=== PATIENT | female | born 1990 | race Hispanic/Latino ===

== ENCOUNTER 2017-10-28 21:39 | Emergency (ER) | payer SELFPAY ==
[2017-10-28] MEDS ORDERED: Metoclopramide HCl 10 MG/2 ML VIAL ONE (22:32)
[2017-10-28] MEDS ORDERED: diphenhydrAMINE 50 MG/ML VIAL ONE (22:32)
[2017-10-28] MEDS ORDERED: Ketorolac Tromethamine 30 MG/ML VIAL ONE (23:41)
--- NOTE | 2017-10-28 23:51 | CT ---
NONCONTRAST CT OF THE BRAIN: Indication: History of headache and vomiting. Comparison: 04-13-16 FINDINGS: No acute infarct, hemorrhage or hydrocephalus is present. Septum pellucidum and third ventricle are m idline. There is slight crowding of the cerebellar tonsils at the level of the foramen magnum. Mastoi d air cells are clear. Skull is intact. IMPRESSION: 1. No definite intracranial abnormality. 2. Slight crowding seen at the foramen magnum, possibly related to low lying tonsils. No hydrocephalu s is evident. Chiari I malformation cannot be entirely excluded. Follow up MRI of the brain may be he lpful for additional characterization. This is similar to the comparison exam of 2016. 3. Visualized mastoid air cells are clear. POS: [facility]
== END 2017-10-29 00:05 | disposition home or self-care (01) ==
LOC: ERS 21:39
DX: R51 Headache (principal)
CPT/HCPCS: 70450; 87804; 96365; 96375; J1200; J1885; J2765

== ENCOUNTER 2018-03-20 22:17 | Emergency (ER) | payer SELFPAY ==
[2018-03-20] MEDS ORDERED: Morphine 4 MG/ML VIAL ONE (22:52)
[2018-03-20] MEDS ORDERED: Ondansetron ODT 8 MG TAB ONE ×2 (22:52→22:54)
[2018-03-20 22:57] LABS: #Basophils 0.1 thou/uL (0.0-0.2); #Lymphocytes 1.1 thou/uL (1.20-3.40); #Monocytes 0.3 thou/uL (0.11-0.59); #Neutrophils 4.5 thou/uL (1.40-6.50); %Eosinophils 0.2 % (0.0-10.0); %Lymphocytes 17.6 % (21.0-51.0); %Monocytes 5.6 % (0.0-10.0); %Neutrophils 75.7 % (42.0-75.0); Hemoglobin 15.1 g/dL (12.0-16.0); Mean Corpuscular Volume 85.4 fl (81.0-99.0); Mean Platelet Volume 6.2 fL (7.4-10.4); Platelet Count 319 thou/uL (130-400); RBC Distribution Width 10.9 % (11.5-14.5); Red Blood Cell (RBC) Count 5.19 mill/uL (4.20-5.40)
[2018-03-20 22:59] LABS: Bilirubin Negative (Negative); Blood, Urine Negative (Negative); Clarity CLOUDY (Clear); Glucose, Urine (Dipstick) Negative (Negative); Leukocyte Small (Negative); Nitrite Negative (Negative); Protein, Urine (Dipstick) Negative (Neg-Trace); Urobilinogen 0.2 mg/dL (0.2-1.0); pH, Urine 5.5 (5.0-9.0)
[2018-03-20 23:01] LABS: Bacteria/HPF Rare-Few HPF (None Seen); Hyaline Casts/LPF 4-6 HYALINE CAST LPF (0-3 Hyaline); Pathc Cast-AUWi Flag 0.87 (0-2.49); Pregnancy Test - Urine (BHCG) Negative (Negative); Pregu Control Background? CLEAR/WHITE (CLR/WHITE); Pregu Control Bar Appear? YES (CONTROL BAR); RBC/HPF 0-3 HPF (0-3); WBC/HPF 21-50 HPF (0-3)
[2018-03-20 23:37] LABS: ALT (SGPT) 41 U/L (8-55); AST (SGOT) 30 U/L (5-34); Albumin 4.5 g/dL (3.5-5.0); Alkaline Phosphatase 71 U/L (40-150); Anion Gap 14 mmol/L (10-20); BUN (Urea Nitrogen) 9 mg/dL (7.0-18.7); Bilirubin, Total 0.5 mg/dL (0.2-1.2); Calc. Creatinine Clearance 0 mL/min (70-130); Calcium 9.2 mg/dL (7.8-10.44); Carbon Dioxide 24 mmol/L (22-29); Chloride 103 mmol/L (98-107); Estimated GFR-MDRD 90; Globulin 3.1 g/dL (2.4-3.5); Glucose 106 mg/dL (70-105); Lipase 21 U/L (8-78); Potassium 3.3 mmol/L (3.5-5.1); Protein, Total 7.6 g/dL (6.0-8.3); Sodium 138 mmol/L (136-145)
[2018-03-20] MEDS ORDERED: cefTRIAXone\\ROCEPHIN 1 GM VIAL ONE (23:58)
[2018-03-21] MEDS ORDERED: Albuterol Sulfate 2.5 mg/3 ml Neb ONE (00:43)
[2018-03-21] MEDS ORDERED: Acetaminophen 500 MG TAB ONE (01:38)
--- NOTE | 2018-03-21 07:39 | RAD ---
CHEST 1 VIEW: HISTORY: Chest pain. COMPARISON: Chest radiograph 04/17/17. FINDINGS: The lungs are clear. No pneumothorax or effusion. Cardiac silhouette and mediastinal contours withi n normal limits. IMPRESSION: No acute intrathoracic abnormality. POS: [facility]
== END 2018-03-21 02:03 | disposition home or self-care (01) ==
LOC: ERS 22:17
DX: R10.13 Epigastric pain (principal); R10.11 Right upper quadrant pain; R11.2 Nausea with vomiting, unspecified; R06.2 Wheezing; N39.0 Urinary tract infection, site not specified
CPT/HCPCS: 71045; 80053; 81003; 81015; 81025; 83690; 85025; 87086; 96361; 96374; 96375; J0696; J2270; J7611; J7620

== ENCOUNTER 2020-06-20 21:29 | Emergency (ER) | payer SELFPAY ==
[~2020-06-20 21:29] MED LIST: Iopamidol-370 76% 500 ML 1 ML ONE
[2020-06-20] MEDS ORDERED: HYDROcodone/Acetaminophen 10/325 mg Tablet ONE (22:01)
--- NOTE | 2020-06-20 22:40 | RAD ---
EXAM: 3 views of the left hand COMPARISON: None HISTORY: Hand pain and swelling yesterday FINDINGS: 3 views of the hand shows no evidence of acute fracture or dislocation. No degenerative lee nges are seen. Moderate dorsal soft tissue swelling is present. IMPRESSION: No evidence of acute osseous abnormality.
[2020-06-20 23:00] LABS: #Basophils 0.1 thou/uL (0.0-0.2); #Eosinphils 0.2 thou/uL (0.0-0.7); #Lymphocytes 3.4 thou/uL (1.20-3.40); #Monocytes 0.7 thou/uL (0.11-0.59); #Neutrophils 3.8 thou/uL (1.40-6.50); %Basophils 1.5 % (0.0-1.0); %Eosinophils 2.9 % (0.0-10.0); %Lymphocytes 41.3 % (21.0-51.0); %Monocytes 8.1 % (0.0-10.0); %Neutrophils 46.2 % (42.0-75.0); Hemoglobin 11.4 g/dL (12.0-16.0); Mean Corpuscular HGB CONC 33.6 g/dL (32.0-36.0); Mean Corpuscular Hemoglobin 29.2 pg (27.0-31.0); Mean Corpuscular Volume 86.9 fL (78.0-98.0); Mean Platelet Volume 6.6 fL (7.4-10.4); Platelet Count 451 thou/uL (130-400); RBC Distribution Width 10.8 % (11.5-14.5); Red Blood Cell (RBC) Count 3.91 mill/uL (4.20-5.40); White Blood Cell (WBC) Count 8.3 thou/uL (4.8-10.8)
[2020-06-20 23:22] LABS: ALT (SGPT) 10 U/L (8-55); AST (SGOT) 13 U/L (5-34); Alkaline Phosphatase 64 U/L (40-110); Anion Gap 11 mmol/L (10-20); BUN (Urea Nitrogen) 15 mg/dL (7.0-18.7); Bilirubin, Total 0.2 mg/dL (0.2-1.2); Calc. Creatinine Clearance 0 mL/min (70-130); Calcium 8.8 mg/dL (7.8-10.44); Carbon Dioxide 26 mmol/L (22-29); Chloride 107 mmol/L (98-107); Estimated GFR-MDRD 86; Globulin 2.5 g/dL (2.4-3.5); Glucose 107 mg/dL (70-105); Potassium 3.5 mmol/L (3.5-5.1); Protein, Total 6.5 g/dL (6.0-8.3); Sodium 140 mmol/L (136-145)
[2020-06-20 23:24] LABS: BHCG - Serum Negative (NEGATIVE); Pregs Control Background? CLEAR/WHITE (CLR/WHITE); Pregs Control Bar Appear? YES (CONTROL BAR)
--- NOTE | 2020-06-20 23:54 | CT ---
EXAM: CT left hand with contrast HISTORY: Left hand pain and swelling that began yesterday. Evaluate for abscess COMPARISON: None TECHNIQUE: Multiple contiguous axial images were obtained and a CT of the left hand with contrast. Sa gittal and coronal reformats were performed. FINDINGS: Mild diffuse soft tissue swelling is seen. There may be a joint effusion involving the metacarpophal angeal joint of the middle finger. The flexor and extensor tendons are normal in appearance. No focal fluid collection is seen to suggest an abscess. No obvious osseous erosions are identified. No fracture or dislocation are seen. IMPRESSION: There appears to be an effusion of the metacarpophalangeal joint of the middle finger wit hout abscess formation at this time.
== END 2020-06-21 00:22 | disposition home or self-care (01) ==
LOC: ERS 21:29
DX: M79.89 Other specified soft tissue disorders (principal); M79.642 Pain in left hand
CPT/HCPCS: 36415; 80053; 84550; 84703; 85025; 85652; 86140; Q9967

== ENCOUNTER 2020-12-18 00:20 | Emergency (ER) | payer SELFPAY ==
--- NOTE | 2020-12-18 08:34 | RAD ---
XR Chest 1 View Portable History: Chest pain Comparison: Radiograph February 2018 Findings: Lungs are clear. No pneumothorax or effusion. Cardiac silhouette and mediastinal contours a re within normal limits. Impression: No acute intrathoracic abnormality
== END 2020-12-18 01:51 | disposition left against medical advice (07) ==
LOC: ERS 00:20
DX: Z53.21 Procedure and treatment not carried out due to patient leaving prior to being seen by health care provider (principal)
CPT/HCPCS: 71045; 93005

== ENCOUNTER 2021-02-21 00:45 | Emergency (ER) | payer SELFPAY | END 2021-02-21 01:19 | disposition home or self-care (01) | LOC: ERS 00:45 | DX: F43.0 Acute stress reaction (principal) | CPT/HCPCS: 99281 ==

== ENCOUNTER 2021-06-02 06:44 | Emergency (ER) | payer SELFPAY ==
[2021-06-02] MEDS ORDERED: Acetaminophen 500 MG TAB ONE (07:01)
[2021-06-02 07:13] LABS: Hemoglobin 12.4 g/dL (12.0-16.0); Mean Corpuscular HGB CONC 32.7 g/dL (32.0-36.0); Mean Corpuscular Hemoglobin 26.5 pg (27.0-31.0); Mean Corpuscular Volume 80.8 fL (78.0-98.0); Mean Platelet Volume 6.3 fL (7.4-10.4); Platelet Count 438 thou/uL (130-400); RBC Distribution Width 13.1 % (11.5-14.5); Red Blood Cell (RBC) Count 4.68 mill/uL (4.20-5.40); White Blood Cell (WBC) Count 8.7 thou/uL (4.8-10.8)
[2021-06-02 07:35] LABS: Bilirubin Negative (Negative); Blood, Urine Negative (Negative); Calcium Oxalate Crystals Rare HPF (None Seen); Clarity Clear (Clear); Glucose, Urine (Dipstick) Normal (Negative); Ketone, Urine Negative (Negative); Leukocyte 250 Leu/uL (Negative); Nitrite Negative (Negative); Protein, Urine (Dipstick) Negative (Neg-Trace); RBC/HPF 0-3 HPF (0-3); Urobilinogen Normal mg/dL (Less than 2); pH, Urine 5.5 (5.0-9.0)
[2021-06-02 07:43] LABS: Bacteria/HPF 1+ HPF (None Seen)
[2021-06-02 07:43] LABS: ALT (SGPT) 12 U/L (8-55); AST (SGOT) 11 U/L (5-34); Albumin 3.7 g/dL (3.5-5.0); Alkaline Phosphatase 55 U/L (40-110); Anion Gap 10 mmol/L (10-20); BUN (Urea Nitrogen) 12 mg/dL (7.0-18.7); Bilirubin, Total Less than 0.2 mg/dL (0.2-1.2); Calc. Creatinine Clearance 0 mL/min (70-130); Calcium 8.6 mg/dL (7.8-10.44); Carbon Dioxide 24 mmol/L (22-29); Chloride 106 mmol/L (98-107); Globulin 2.8 g/dL (2.4-3.5); Glucose 105 mg/dL (70-105); Lipase 94 U/L (8-78); Potassium 3.7 mmol/L (3.5-5.1); Protein, Total 6.5 g/dL (6.0-8.3); Sodium 136 mmol/L (136-145)
[2021-06-02 07:55] LABS: Band 1 % (5-11); Lymphocytes 62 % (21-51); MDiff Complete? YES; Monocytes 6 % (0-10); Neutrophil 31 % (42-75); Platelet Morphology Comment Appears Adequate; RBC Morphology Normal
== END 2021-06-02 09:00 | disposition home or self-care (01) ==
LOC: ERS 06:44
DX: O99.891 Other specified diseases and conditions complicating pregnancy (principal); R10.10 Upper abdominal pain, unspecified; Z3A.01 Less than 8 weeks gestation of pregnancy
CPT/HCPCS: 36415; 76856; 80053; 81003; 81015; 83690; 84702; 85025; 87086

== ENCOUNTER 2021-06-11 01:42 | Emergency (ER) | payer OTHER, SELFPAY ==
[2021-06-11 02:49] LABS: #Basophils 0.1 thou/uL (0.0-0.2); #Eosinphils 0.1 thou/uL (0.0-0.7); #Lymphocytes 3.2 thou/uL (1.20-3.40); #Monocytes 0.7 thou/uL (0.11-0.59); #Neutrophils 2.9 thou/uL (1.40-6.50); %Basophils 0.9 % (0.0-1.0); %Lymphocytes 45.7 % (21.0-51.0); %Monocytes 9.6 % (0.0-10.0); %Neutrophils 41.9 % (42.0-75.0); Hemoglobin 10.1 g/dL (12.0-16.0); Mean Corpuscular HGB CONC 34.2 g/dL (32.0-36.0); Mean Corpuscular Hemoglobin 26.9 pg (27.0-31.0); Mean Corpuscular Volume 78.7 fL (78.0-98.0); Mean Platelet Volume 6.2 fL (7.4-10.4); Platelet Count 355 thou/uL (130-400); RBC Distribution Width 13.1 % (11.5-14.5); Red Blood Cell (RBC) Count 3.76 mill/uL (4.20-5.40); White Blood Cell (WBC) Count 6.9 thou/uL (4.8-10.8)
[2021-06-11] MEDS ORDERED: HYDROcodone/Acetaminophen 5/325 mg Tablet ONE (03:27)
[2021-06-11] MEDS ORDERED: Ondansetron ODT 4 MG TAB ONE (03:28)
[2021-06-11 04:10] LABS: Bilirubin Negative (Negative); Blood, Urine Negative (Negative); Clarity Turbid (Clear); Glucose, Urine (Dipstick) Normal (Negative); Ketone, Urine Negative (Negative); Leukocyte 75 Leu/uL (Negative); Nitrite Negative (Negative); Protein, Urine (Dipstick) 10 mg/dL (Neg-Trace); RBC/HPF 0-3 HPF (0-3); Specific Gravity, Urine 1.027 (1.002-1.036); Urobilinogen Normal mg/dL (Less than 2)
[2021-06-11 04:19] LABS: Bacteria/HPF 1+ HPF (None Seen)
== END 2021-06-11 05:00 | disposition home or self-care (01) ==
LOC: ERS 01:42
DX: O23.41 Unspecified infection of urinary tract in pregnancy, first trimester (principal); Z3A.09 9 weeks gestation of pregnancy
CPT/HCPCS: 36415; 81003; 81015; 84702; 85025; 87086; 99284; Q0162

== ENCOUNTER 2021-06-13 | Emergency (ER) | payer MEDICAID | END 2021-06-13 14:48 | disposition home or self-care (01) ==

== ENCOUNTER 2021-08-19 17:17 | Emergency (ER) | payer MEDICAID, OTHER ==
[2021-08-19] MEDS ORDERED: Cyclobenzaprine 10 MG TAB ONE (17:41)
[2021-08-19 17:48] LABS: #Eosinphils 0.2 thou/uL (0.0-0.7); #Lymphocytes 1.5 thou/uL (1.20-3.40); #Monocytes 0.7 thou/uL (0.11-0.59); #Neutrophils 5.8 thou/uL (1.40-6.50); %Basophils 0.4 % (0.0-1.0); %Eosinophils 2.9 % (0.0-10.0); %Lymphocytes 18.5 % (21.0-51.0); %Monocytes 8.2 % (0.0-10.0); Hemoglobin 11.9 g/dL (12.0-16.0); Mean Platelet Volume 6.1 fL (7.4-10.4); Platelet Count 373 thou/uL (130-400); RBC Distribution Width 13.4 % (11.5-14.5); Red Blood Cell (RBC) Count 4.27 mill/uL (4.20-5.40); White Blood Cell (WBC) Count 8.2 thou/uL (4.8-10.8)
[2021-08-19 18:09] LABS: ALT (SGPT) 26 U/L (8-55); AST (SGOT) 20 U/L (5-34); Albumin 3.5 g/dL (3.5-5.0); Alkaline Phosphatase 67 U/L (40-110); Anion Gap 14 mmol/L (10-20); BUN (Urea Nitrogen) 8 mg/dL (7.0-18.7); Bilirubin, Total 0.2 mg/dL (0.2-1.2); Calc. Creatinine Clearance 0 mL/min (70-130); Calcium 8.8 mg/dL (7.8-10.44); Carbon Dioxide 22 mmol/L (22-29); Chloride 103 mmol/L (98-107); Globulin 2.8 g/dL (2.4-3.5); Glucose 117 mg/dL (70-105); Lipase 22 U/L (8-78); Potassium 3.2 mmol/L (3.5-5.1); Protein, Total 6.3 g/dL (6.0-8.3); Sodium 136 mmol/L (136-145)
[2021-08-19] MEDS ORDERED: Ondansetron PF 4 MG/2 ML Vial ONE (18:48)
[2021-08-19] MEDS ORDERED: Morphine 4 MG/ML VIAL ONE (18:48)
[2021-08-19 18:57] LABS: Bilirubin Negative (Negative); Blood, Urine 3+ (Negative); Glucose, Urine (Dipstick) Normal (Negative); Ketone, Urine 20 mg/dL (Negative); Leukocyte 25 Leu/uL (Negative); Nitrite Negative (Negative); Protein, Urine (Dipstick) 70 mg/dL (Neg-Trace); RBC/HPF Greater than 50 HPF (0-3); Specific Gravity, Urine 1.027 (1.002-1.036); Urobilinogen Normal mg/dL (Less than 2); pH, Urine 5.5 (5.0-9.0)
[2021-08-19 18:58] LABS: Bacteria/HPF 1+ HPF (None Seen); Clarity Cloudy (Clear)
== END 2021-08-19 22:40 | disposition short-term general hospital (02) ==
LOC: ERS 17:17
DX: O99.891 Other specified diseases and conditions complicating pregnancy (principal); N13.2 Hydronephrosis with renal and ureteral calculous obstruction; R07.81 Pleurodynia; Z3A.16 16 weeks gestation of pregnancy
CPT/HCPCS: 71045; 76705; 80053; 81003; 81015; 83690; 84484; 85025; 85379; 93005; 96374; 96375; J2270; J2405

== ENCOUNTER 2021-11-05 18:40 | Emergency (ER) | payer MEDICAID ==
[2021-11-06 13:13] LABS: SARS-CoV-2 PCR by NAA DETECTED (NotDetected)
== END 2021-11-05 19:22 | disposition home or self-care (01) ==
LOC: ERS 18:40
DX: O98.513 Other viral diseases complicating pregnancy, third trimester (principal); U07.1 COVID-19; D64.9 Anemia, unspecified; Z3A.28 28 weeks gestation of pregnancy
CPT/HCPCS: 99283; U0003; U0005

== ENCOUNTER 2021-12-22 15:50 | Outpatient (CLI) | payer OTHER | END 2021-12-22 15:51 | disposition home or self-care (01) | LOC: ULT 15:50 | PROVIDERS: ATTEND Urology | DX: N13.2 Hydronephrosis with renal and ureteral calculous obstruction (principal) | CPT/HCPCS: 76770 ==

== ENCOUNTER 2022-09-10 14:23 | Outpatient (CLI) | payer OTHER | END 2022-09-10 14:24 | disposition home or self-care (01) | LOC: BICULT 14:23 | PROVIDERS: ATTEND Urology | DX: N13.2 Hydronephrosis with renal and ureteral calculous obstruction (principal) | CPT/HCPCS: 76770 ==

== ENCOUNTER 2023-10-17 14:30 | Emergency (ER) | payer BC, OTHER, SELFPAY ==
[2023-10-17] MEDS ORDERED: Ketorolac Tromethamine 30 MG/ML VIAL ONE (15:29)
[2023-10-17 15:53] LABS: #Eosinphils 0.4 thou/uL (0.0-0.7); #Monocytes 0.5 thou/uL (0.11-0.59); %Basophils 0.5 % (0.0-1.0); %Eosinophils 4.9 % (0.0-10.0); %Lymphocytes 37.5 % (21.0-51.0); %Monocytes 5.8 % (0.0-10.0); Hematocrit 39.7 % (36.0-47.0); Hemoglobin 13.2 g/dL (12.0-16.0); Mean Corpuscular HGB CONC 33.2 g/dL (32.0-36.0); Mean Corpuscular Hemoglobin 27.9 pg (27.0-31.0); Mean Corpuscular Volume 83.9 fl (78.0-98.0); Mean Platelet Volume 9.3 fL (7.4-10.4); Platelet Count 428 10x3/uL (130-400); RBC Distribution Width 12.8 % (11.5-14.5); Red Blood Cell (RBC) Count 4.73 mill/uL (4.20-5.40); White Blood Cell (WBC) Count 7.9 10x3/uL (4.8-10.8)
[2023-10-17 16:16] LABS: Albumin 3.9 g/dL (3.5-5.0)
[2023-10-17 16:17] LABS: Chloride 110 mmol/L (98-107); Potassium 3.3 mmol/L (3.5-5.1); Sodium 140 mmol/L (136-145)
[2023-10-17 16:18] LABS: Calcium 8.3 mg/dL (7.8-10.44)
[2023-10-17 16:19] LABS: Globulin 2.5 g/dL (2.4-3.5); Glucose 73 mg/dL (70-105); Protein, Total 6.4 g/dL (6.0-8.3)
[2023-10-17 16:20] LABS: Anion Gap 11 mmol/L (10-20); Bilirubin, Total 0.3 mg/dL (0.2-1.2); Carbon Dioxide 22 mmol/L (22-29); Troponin I Less than 0.010 ng/mL (< 0.028)
[2023-10-17 16:21] LABS: Alkaline Phosphatase 57 U/L (40-110)
[2023-10-17 16:22] LABS: Calc. Creatinine Clearance 0 mL/min (70-130); Estimated GFR 107
[2023-10-17 16:23] LABS: BUN (Urea Nitrogen) 10 mg/dL (7.0-18.7)
[2023-10-17 16:24] LABS: ALT (SGPT) 10 U/L (8-55); AST (SGOT) 12 U/L (5-34)
[2023-10-17 16:59] LABS: SARS-CoV-2 NAA Rapid Test Not Detected (NotDetected)
== END 2023-10-17 15:48 | disposition home or self-care (01) ==
LOC: ERS 14:30
DX: R07.89 Other chest pain (principal); F17.290 Nicotine dependence, other tobacco product, uncomplicated
CPT/HCPCS: 71045; 80053; 84484; 85025; 93005; 96374; J1885

== ENCOUNTER 2024-10-06 08:38 | Emergency (ER) | payer SELFPAY ==
[2024-10-06 09:39] LABS: #Basophils 0.03 10x3/uL (0.0-0.2); %Basophils 0.4 % (0.0-1.0); %Lymphocytes 31.3 % (21.0-51.0); %Monocytes 7.5 % (0.0-10.0); %Neutrophils 53.7 % (42.0-75.0); Hematocrit 38.8 % (36.0-47.0); Mean Corpuscular HGB CONC 33.5 g/dL (32.0-36.0); Mean Corpuscular Hemoglobin 28.5 pg (27.0-31.0); Mean Corpuscular Volume 85.1 fL (78.0-98.0); Mean Platelet Volume 8.8 fL (7.4-10.4); Platelet Count 382 10x3/uL (130-400); RBC Distribution Width 12.2 % (11.5-14.5); Red Blood Cell (RBC) Count 4.56 mill/uL (4.20-5.40)
[2024-10-06 10:16] LABS: ALT (SGPT) 19 U/L (8-55); AST (SGOT) 16 U/L (5-34); Albumin 3.7 g/dL (3.5-5.0); Alkaline Phosphatase 58 U/L (40-110); Anion Gap 13 mmol/L (10-20); BUN (Urea Nitrogen) 8 mg/dL (7.0-18.7); Bilirubin, Total 0.2 mg/dL (0.2-1.2); Calc. Creatinine Clearance 0 mL/min (70-130); Calcium 8.7 mg/dL (7.8-10.44); Carbon Dioxide 21 mmol/L (22-29); Chloride 109 mmol/L (98-107); Estimated GFR 122; Glucose 103 mg/dL (70-105); Potassium 3.7 mmol/L (3.5-5.1); Protein, Total 6.7 g/dL (6.0-8.3); Sodium 139 mmol/L (136-145)
[2024-10-06 10:42] LABS: Bacteria/HPF None Seen HPF (None Seen); Bilirubin Negative (Negative); Blood, Urine Trace (Negative); CAUTI Indications for Culture < 2yrs of age; Clarity Clear (Clear); Glucose, Urine (Dipstick) Normal (Negative); Ketone, Urine Negative (Negative); Leukocyte 75 Leu/uL (Negative); Nitrite Negative (Negative); Protein, Urine (Dipstick) Negative (Neg-Trace); RBC/HPF 0-3 HPF (0-3); Specific Gravity, Urine 1.027 (1.002-1.036); Urobilinogen Normal mg/dL (Less than 2)
[2024-10-06 10:43] LABS: Urine Culture Reflex Yes Yes
== END 2024-10-06 12:00 | disposition home or self-care (01) ==
LOC: ERS 08:38
DX: O20.9 Hemorrhage in early pregnancy, unspecified (principal); O99.331 Smoking (tobacco) complicating pregnancy, first trimester; Z3A.01 Less than 8 weeks gestation of pregnancy
CPT/HCPCS: 36415; 76801; 80053; 81001; 84702; 85025; 86900; 86901; 87086

== ENCOUNTER 2024-10-12 09:17 | Emergency (ER) | payer SELFPAY ==
[2024-10-12 11:07] LABS: Bacteria/HPF None Seen HPF (None Seen); Bilirubin Negative (Negative); Blood, Urine Trace (Negative); CAUTI Indications for Culture Pelvic or flank pain; Clarity Clear (Clear); Glucose, Urine (Dipstick) Normal (Negative); Ketone, Urine Negative (Negative); Leukocyte Negative Leu/uL (Negative); Nitrite Negative (Negative); Protein, Urine (Dipstick) Negative (Neg-Trace); RBC/HPF 0-3 HPF (0-3); Specific Gravity, Urine 1.031 (1.002-1.036); Urobilinogen Normal mg/dL (Less than 2); WBC/HPF 0-3 HPF (0-3)
[2024-10-12 11:08] LABS: Urine Culture Reflex No No
== END 2024-10-12 13:00 | disposition home or self-care (01) ==
LOC: ERS 09:17
DX: O02.81 Inappropriate change in quantitative human chorionic gonadotropin (hCG) in early pregnancy (principal); F17.290 Nicotine dependence, other tobacco product, uncomplicated
CPT/HCPCS: 36415; 76770; 76801; 81001; 84702